=== PATIENT | female | born 1935 | race Caucasian/White ===

== ENCOUNTER → 2016-09-07 | Outpatient (CLI) | payer MEDICARE, BC ==
[~2016-09-07] MED LIST: ALEVE220 M1 PO; ASA CHILDREN'S81 MG PO; ATENOLOL25 MG PO; BABY ASPIRIN PO; BENADRYL-DPS25 MG PO; CALCIUM600 MG PO; CEPACOL SORE T1 EACH PO; DULCOLAX-DPS5 MG PO; DYAZIDE 37.5-21 EACH PO; FEOSOL-DPS325 MG PO; FLEXERIL-DPS10 MG PO; MAALOX DPS30 ML PO; MILK OF MAGNESI10 ML PO; MIRALAX PACKET17 GM PO; MULTI VITAMIN1 EACH PO; NEXIUM40 MG PO; OXY IR DPS5 MG PO; PROTONIX40 MG PO; SENOKOT S1 TAB PO; SURFAK DPS240 MG PO; SYNTHROID88 MCG PO; TUMS DPS500 MG PO; TYLENOL325 MG PO; ULTRAM50 MG PO; VASOTEC DPS2.5 MG PO; VITAMIN D1000 UNIT PO; XARELTO10 MG PO; ZETIA10 MG PO
== END | disposition home or self-care (01) ==
LOC: PTH.S 09:03
DX: Z01.818 Encounter for other preprocedural examination (principal)

== ENCOUNTER 2016-09-21 05:38 | Inpatient (IN) | payer MEDICARE, BC ==
[~2016-09-21] VITALS: Ht 167.6 cm; Wt 89.4 kg
[~2016-09-21 05:38] MED LIST changes: -ALEVE220 M1 PO; -ASA CHILDREN'S81 MG PO; -ATENOLOL25 MG PO; -BENADRYL-DPS25 MG PO; -CALCIUM600 MG PO; -CEPACOL SORE T1 EACH PO; -DULCOLAX-DPS5 MG PO; -DYAZIDE 37.5-21 EACH PO; -FEOSOL-DPS325 MG PO; -FLEXERIL-DPS10 MG PO; -MAALOX DPS30 ML PO; -MILK OF MAGNESI10 ML PO; -MIRALAX PACKET17 GM PO; -MULTI VITAMIN1 EACH PO; -PROTONIX40 MG PO; -SENOKOT S1 TAB PO; -SURFAK DPS240 MG PO; -SYNTHROID88 MCG PO; -TUMS DPS500 MG PO; -TYLENOL325 MG PO; -ULTRAM50 MG PO; -VASOTEC DPS2.5 MG PO; -VITAMIN D1000 UNIT PO; -XARELTO10 MG PO; -ZETIA10 MG PO
[2016-09-25] MEDS ORDERED: ATENOLOL25 MG PO (13:51)
[2016-09-25] MEDS ORDERED: DYAZIDE 37.5-21 EACH PO (13:51)
[2016-09-25] MEDS ORDERED: ZETIA10 MG PO (13:51)
[2016-09-25] MEDS ORDERED: SYNTHROID88 MCG PO (13:51)
[2016-09-25] MEDS ORDERED: ALEVE220 M1 PO (13:52)
[2016-09-25] MEDS ORDERED: VASOTEC DPS2.5 MG PO (13:52)
[2016-09-25] MEDS ORDERED: CALCIUM600 MG PO (13:52)
[2016-09-25] MEDS ORDERED: PROTONIX40 MG PO (13:52)
[2016-09-25] MEDS ORDERED: ASA CHILDREN'S81 MG PO (13:53)
[2016-09-25] MEDS ORDERED: MULTI VITAMIN1 EACH PO (13:53)
[2016-09-25] MEDS ORDERED: VITAMIN D1000 UNIT PO (13:53)
[2016-09-25] MEDS ORDERED: SENOKOT S1 TAB PO (13:54)
[2016-09-25] MEDS ORDERED: MIRALAX PACKET17 GM PO (13:54)
[2016-09-25] MEDS ORDERED: FEOSOL-DPS325 MG PO (13:54)
[2016-09-25] MEDS ORDERED: ULTRAM50 MG PO (13:55)
[2016-09-25] MEDS ORDERED: XARELTO10 MG PO (13:55)
[2016-09-25] MEDS ORDERED: TYLENOL325 MG PO (13:55)
[2016-09-25] MEDS ORDERED: FLEXERIL-DPS10 MG PO (13:56)
[2016-09-25] MEDS ORDERED: DULCOLAX-DPS5 MG PO (13:56)
[2016-09-25] MEDS ORDERED: BENADRYL-DPS25 MG PO (13:56)
[2016-09-25] MEDS ORDERED: CEPACOL SORE T1 EACH PO (13:56)
[2016-09-25] MEDS ORDERED: MAALOX DPS30 ML PO (13:57)
[2016-09-25] MEDS ORDERED: MILK OF MAGNESI10 ML PO (13:57)
[2016-09-25] MEDS ORDERED: SURFAK DPS240 MG PO (13:57)
[2016-09-25] MEDS ORDERED: TUMS DPS500 MG PO (13:58)
--- NOTE | 2016-09-26 10:37 | OR ---
ADMIT: 09/21/2016 RM/LOC: 525 [facility] MR#: [id number] [address] [address] DARIN ESTRELLA [address] [place] [address] Operative/Delivery Room Report SEX: F AGE: 81 : 1935 SURGERY DATE: 09/21/2016 SURGEON: Patel Alva MD SET UP MECHANIC COATING MACHINES: PRISCILLA Stout PREOPERATIVE DIAGNOSIS: Right knee degenerative joint disease. POSTOPERATIVE DIAGNOSIS: Right knee degenerative joint disease. OPERATION: Right total knee arthroplasty with Exparel block. ANESTHESIA: Spinal. COMPLICATIONS: None. ESTIMATED BLOOD LOSS: 100 mL. TOTAL TOURNIQUET TIME: 60 minutes. COMPONENTS: 1. Size 4 narrow Sigma femoral component. 2. Size 3 modular Sigma tibial component. 3. 8 mm posterior stabilized insert. 4. A 38-mm oval patellar button. 5. Hamel SpeedSet cement. DESCRIPTION OF OPERATION: The patient was taken to the operating room and the correct extremity was identified. The patient received a spinal anesthetic. The right lower extremity was prepped and draped in a standard fashion. The leg was exsanguinated and tourniquet inflated. An anterior incision was made and dissection was carried through the subcutaneous tissue. A medial parapatellar arthrotomy was performed. An appropriate medial release was performed. The patella was subluxed laterally. The infrapatellar fat pad was partially excised for exposure. At that point, the distal femur was opened up with a drill. We cut 13 mm off the distal femur in 5 degrees of valgus using an intramedullary guide. We then cut the tibia perpendicular to its long axis taking it flush with the affected side with an extramedullary guide. We then sized the femur to a size 4 and pinned this in appropriate external rotation aligning it with the epicondylar axis. We then made anterior, posterior, and chamfer cuts with the 4-in-1 cutting block. We opened up the joint space and removed the remaining posterior osteophytes, meniscus, and PCL ligament. We made our box cut centralizing the femoral component. The tibia was subluxed anteriorly, fit for a size 3 modular tibial tray, punched and drilled in appropriate external rotation. We then removed the remaining tibial osteophytes. We then cut the patella perpendicular to its long axis taking it flush with the lateral facet and fit it for a 38 mm oval patellar button restoring patellar height. We then extended the knee and opened the joint space to obtain posterior hemostasis and perform a posterior Exparel block. We ADMIT: 09/21/2016 RM/LOC: 525 [facility] MR#: [id number] [address] [address] DARIN ESTRELLA [address] [place] [address] Operative/Delivery Room Report SEX: F AGE: 81 : 1935 then put in trial components with an 8 mm insert. At that point, we had full extension, full flexion, patella tracked centrally and no lateral release was required. The knee was also stable to varus and valgus stress testing. All trial components were removed and all the bony surfaces were Waterpik'd clean. We then cemented the tibia, femur, and patella in a standard fashion, put in the trial 8 mm insert and held the knee in extension. While the cement hardened, we completed our intra-articular Exparel block. Once the cement was hard, we deflated the tourniquet, obtained hemostasis, irrigated out the wound thoroughly, removed the trial insert and put in the real insert. The knee was again found to be stable with full range of motion. No Hemovac drain was used. At that point, the extensor mechanism was closed with an interrupted 0-Vicryl suture with the knee in flexion. The subcutaneous tissue was closed 2-0 Vicryl and jorge were placed in the skin. Mepilex Border dressing was then applied. The patient was taken to the recovery room in stable condition with no complications. Patel Alva MD/ berta JOB #: [id number] CC: Paetl Alva MD, Attending Physician Elton Valera MD, Family Physician
--- NOTE | 2016-09-30 13:33 | CO ---
ADMIT: 09/21/2016 RM/LOC: [facility] MR#: [id number] [address] [facility] [address] [place] [id number] KIMBERLY ESTRELLA [address] [place] [address] Consultation Report SEX: F AGE: 81 : 1935 DATE OF CONSULTATION: 09/07/2016 ATTENDING PHYSICIAN: Patel Alva MD CONSULTING PHYSICIAN: Elton Valera MD CHIEF COMPLAINT: Preop evaluation facing right total knee arthroplasty with Dr. Alva on September 21, 2016. HISTORY OF PRESENT ILLNESS: Kimberly is a very nice, and otherwise quite healthy 81-year-old, woman who has had multiple joint replacements as outlined below. In fact her last procedure was a left total knee arthroplasty with Dr. Alva in June 2016. She has gotten along well with that. Her right knee continues to give her a lot of trouble, it is unstable, it is painful. She walks with a right limp. She and Dr. Alva have decided to proceed with a right total knee arthroplasty and we were asked to see her for preoperative evaluation. She has not recently been ill. She has had no history for previous problems with anesthesia. She is anxious to get this procedure done. PAST SURGICAL HISTORY: She has had a left total hip arthroplasty in February 2011, right total hip arthroplasty in February 2015, left total knee arthroplasty in June 2016, right first metatarsal resection in May 2014. She has also had a previous total abdominal hysterectomy and bilateral salpingo-oophorectomy for benign disease. PAST MEDICAL PROBLEMS: Include a history of mild pulmonary hypertension, hyperlipidemia, hypothyroidism, dyspepsia, and previous abnormal EKGs. She had a Cardiology evaluation preoperatively in 2014 with benign findings. She was last seen at the [facility] on 04/14/2016, and had improved pulmonary hypertension on a repeat echo. It was felt it was fine for her to proceed with any operation. She was noted on the echo to have an ejection fraction of 60%-65% with grade 1 diastolic dysfunction, mild biatrial enlargement, mild mitral regurgitation, mild tricuspid regurgitation, and systemic hypertension. FAMILY HISTORY: Positive for heart disease, hypertension, and arthritis and a mother and sister with a history of breast cancer. SOCIAL HISTORY: Reveals that she drinks 1-2 cups of coffee per day. She has never been a smoker. She drinks alcohol very rarely if at all. She is retired from her work as a fast food fry cook. She was several years ago. REVIEW OF SYSTEMS: Reveals she has had no recent signs of infection and feels well otherwise. She has had no unexplained fever, chills, or weight change. She denies any recent headache. Her eyes have been evaluated appropriately and she has had no recent vision changes. She denies any ominous chest pain or difficulty breathing. She states her bladder and bowel functions been normal. She has a history of mild depression - mostly with the grief response with the ADMIT: 09/21/2016 RM/LOC: [facility] MR#: [id number] [address] [address] KIMBERLY ESTRELLA [facility] [place] [address] Consultation Report SEX: F AGE: 81 : 1935 loss of her , Terel several years ago in a terrible accident with alexander. Currently she has not needed any antidepressants and her PHQ-9 and ZACK-7 are quite benign. There is no history for neurologic illness. PHYSICAL EXAMINATION: GENERAL: She is alert, in good humor, walking with a mild right limp. VITAL SIGNS: Blood pressure 130/76, regular pulse of 52, she is afebrile and weight is 182 pounds with a BMI of 29, and O2 saturation on room air of 97%. HEENT: Negative. NECK: Reasonably supple. No apparent bruits. LUNGS: Clear to auscultation. CARDIAC: Shows a regular rhythm without apparent murmur. ABDOMEN: Soft without masses or tenderness. EXTREMITIES: Lower extremities show good pulses. She has obvious osteoarthritic changes in the right knee and again is walking with a right limp. Her scar on the left knee looks good. She has excellent range of motion. She has good pulses in her feet and no edema. NEUROLOGIC: General neurologic is normal. IMPRESSION: 1. Worsening degenerative arthritis of her right knee - facing right total knee arthroplasty. 2. Mild pulmonary hypertension. 3. Hyperlipidemia. 4. Hypothyroidism. 5. Dyspepsia. 6. Systemic hypertension. 7. Status post multiple orthopedic procedures as outlined above. PLAN: Reviewed her preop laboratory studies through [facility] done today. CBC and a BMP are essentially normal for nonfasting state. Her EKG still shows occasional PVCs and changes of possible old infarctions, but these are stable. I think it is fine to proceed with this operation. I anticipate she will do very well. I will be happy to follow her during her hospitalization medically. I will plan on seeing her back approximately 6 weeks postop in general medical followup. Thanks for including us in her care. Elton Valera MD/ berta JOB #: [id number] CC: Patel Alva MD, Attending Physician Elton Valera MD, Family Physician
--- NOTE | 2016-10-09 08:30 | DS ---
ADMIT: 09/21/2016 RM/LOC: 525 [facility] MR#: [id number] [address] [facility] [address] [place] [phone] KIMBERLY ESTRELLA [address] [place] [address] General Discharge Summary SEX: F AGE: 81 : 1935 ADMISSION DATE: 09/21/2016 DISCHARGE DATE: 09/24/2016 REASON FOR ADMISSION: Elective right total knee arthroplasty after failing conservative management for osteoarthritis. PREOPERATIVE DIAGNOSIS: Right knee degenerative joint disease. POSTOPERATIVE DIAGNOSIS: Right knee degenerative joint disease. PROCEDURE PERFORMED: Right total knee arthroplasty with Exparel block. ANESTHETIC: Spinal. COMPLICATIONS: None. ESTIMATED BLOOD LOSS: 100 mL. SURGEON: Patel Alva MD. ORACLE ARCHITECT: Jazzmine Gamino PA-C. ACTIVE MEDICAL PROBLEMS: Osteoarthritis, mild pulmonary hypertension, hyperlipidemia, hypothyroidism, dyspepsia, systemic hypertension. HOSPITAL COURSE: Kimberly was admitted on 09/21/2016, for elective right total knee arthroplasty, was completed successfully by Dr. Alva. There were no complications. Postoperatively, she did well with pain control with use of intraoperative Exparel as well as oral analgesics. He participated well with physical therapy. On the evening of day of surgery, she did have low blood pressures in 90s over 40s, heart rate in 50s. She was fluid bolused and held her antihypertensives. This improved her pressures again up over 100 up to 130, pulse rebounded back up to 50s in the ED. She was otherwise very comfortable. Remainder of her hospital stay was unremarkable other than experiencing mild acute surgical blood-loss anemia with hemoglobin dropping to 10.5, but remained hemodynamically stable, did not require transfusion. Postop day #3, she was stable and ready for discharge with plans for outpatient therapy. DISCHARGE MEDICATIONS: 1. Atenolol 25 mg daily. 2. Dyazide 37.5/25 mg daily. 3. Synthroid 88 mcg daily. 4. Pantoprazole 40 mg daily. 5. Zetia 10 mg daily. 6. Enalapril 2.5 mg daily. 7. Calcium 600 mg daily. 8. Aleve 220 mg daily to be resumed after completion of Xarelto. 9. Aspirin 81 mg daily. ADMIT: 09/21/2016 RM/LOC: 525 [facility] MR#: [id number] [address] [facility] [address] [place], [place] [address] KIMBERLY ESTRELLA Rajat [address] [place] [address] General Discharge Summary SEX: F AGE: 81 : 1935 10.Multivitamin daily. 11.Vitamin D3, 1000 units daily. 12.Feosol 325 mg daily. 13.MiraLax p.r.n. 14.Senokot b.i.d. p.r.n. 15.Tylenol 650 mg q.6 p.r.n. 16.Ultram 50 mg one to two q.6 p.r.n. 17.Xarelto 10 mg daily x3 weeks. 18.Benadryl 25 mg q.6 p.r.n. 19.Cepacol p.r.n. 20.Dulcolax p.r.n. 21.Flexeril 10 mg t.i.d. p.r.n. 22.Maalox p.r.n. 23.Milk of mag p.r.n. 24.Surfak 240 mg b.i.d. p.r.n. 25.Tums p.r.n. DISCHARGE INSTRUCTIONS: Kimberly will undergo therapy per total knee arthroplasty protocol. Follow up in the Orthopedic office in 2 weeks for wound check, 6 weeks with x-rays. Follow up with primary care as directed. Parag Dumont PA-C / Patel Alva MD / berta JOB #: [id number] CC: Patel Alva MD, Attending Physician Elton Valera MD, Family Physician
--- NOTE | 2016-10-09 08:30 | HP ---
ADMIT: 09/21/2016 RM/LOC: [facility] MR#: [id number] [address] [place] [phone] DARIN ESTRELLA [address] [place] [address] Pre-OP History and Physical SEX: F AGE: 81 : 1935 DATE OF SERVICE: CHIEF COMPLAINT: Right knee pain. HISTORY OF PRESENT ILLNESS: The patient is a healthy 81-year-old female. She had a left knee replacement, did very well. Her right knee is now painful. She has known right knee arthritis, now being admitted for right total knee arthroplasty. PAST MEDICAL HISTORY: Past medical problems include arthritis, hypertension. PAST SURGICAL HISTORY: Surgeries include hysterectomy, knee replacement. MEDICATIONS: Include: 1. Ziac. 2. Aleve. 3. Aspirin. 4. Nexium. 5. Atenolol. 6. Enalapril. 7. Synthroid. 8. Dyazide. ALLERGIES: TO NITROFURANTOIN. SOCIAL HISTORY: Denies any significant tobacco or alcohol use. REVIEW OF SYSTEMS: Negative. PHYSICAL EXAMINATION: Healthy appearing female. She has a varus deformity to ADMIT: 09/21/2016 RM/LOC: [facility] MR#: [id number] [address] [place] [phone] DARIN ESTRELLA [address] [place] [address] Pre-OP History and Physical SEX: F AGE: 81 : 1935 the right knee, pain around the medial joint line. Range of motion 5 to 110 degrees. No instability. No pain in the hip. Leg is neurovascularly intact. DIAGNOSTIC DATA: X-rays AP, lateral, PA flexion view shows advanced right knee arthritis. No joint space medially. IMPRESSION: Advanced right knee degenerative joint disease. PLAN: We talked about different options. She has failed conservative care. Plan on doing a right Sigma total knee arthroplasty. She is aware of the risks, benefits, and options and agreed to proceed. She has been seen and cleared from a medical standpoint. Patel Alva MD/ berta JOB #: [id number] CC: Patel Alva MD, Attending Physician Elton Valera MD, Family Physician
== END 2016-09-24 12:55 | disposition home or self-care (01) | DRG 470 ==
LOC: WOR 05:38 → 5MS 05:38
PROVIDERS: ADMIT Orthopaedic Surgery
PROC: 0SRC0J9 Replacement of Right Knee Joint with Synthetic Substitute, Cemented, Open Approach (ICD-10-PCS; principal; 2016-09-21)
DX: M17.11 Unilateral primary osteoarthritis, right knee (principal); D62 Acute posthemorrhagic anemia; I27.2 Other secondary pulmonary hypertension; I10 Essential (primary) hypertension; E78.5 Hyperlipidemia, unspecified; K21.9 Gastro-esophageal reflux disease without esophagitis; E03.9 Hypothyroidism, unspecified; Z96.643 Presence of artificial hip joint, bilateral; Z96.652 Presence of left artificial knee joint; Z79.82 Long term (current) use of aspirin

== ENCOUNTER → 2016-11-16 | Outpatient (CLI) | payer MEDICARE, BC ==
[~2016-11-16] MED LIST changes: +ALEVE220 M1 PO; +ASA CHILDREN'S81 MG PO; +ATENOLOL25 MG PO; +BENADRYL-DPS25 MG PO; +CALCIUM600 MG PO; +CEPACOL SORE T1 EACH PO; +DULCOLAX-DPS5 MG PO; +DYAZIDE 37.5-21 EACH PO; +FEOSOL-DPS325 MG PO; +FLEXERIL-DPS10 MG PO; +MAALOX DPS30 ML PO; +MILK OF MAGNESI10 ML PO; +MIRALAX PACKET17 GM PO; +MULTI VITAMIN1 EACH PO; +PROTONIX40 MG PO; +SENOKOT S1 TAB PO; +SURFAK DPS240 MG PO; +SYNTHROID88 MCG PO; +TUMS DPS500 MG PO; +TYLENOL325 MG PO; +ULTRAM50 MG PO; +VASOTEC DPS2.5 MG PO; +VITAMIN D1000 UNIT PO; +XARELTO10 MG PO; +ZETIA10 MG PO
== END | disposition home or self-care (01) ==
LOC: RAD.S 10:18
DX: Z12.31 Encounter for screening mammogram for malignant neoplasm of breast (principal); R92.1 Mammographic calcification found on diagnostic imaging of breast; Z80.3 Family history of malignant neoplasm of breast